=== PATIENT | female | born 1995 | race Caucasian/White ===

== ENCOUNTER 2023-07-23 06:04 | Inpatient (IN) | payer OTHER ==
[~2023-07-23] VITALS: Ht 175.3 cm; Wt 58.2 kg
[2023-07-23] MEDS ORDERED: DEXT30CA6 PO (06:41)
[2023-07-23] MEDS ORDERED: ESCI-8 PO (06:41)
[2023-07-23] MEDS ORDERED: AMPH15TA3 PO (06:41)
[2023-07-23] MEDS ORDERED: LEVO88TA7 PO (06:41)
[2023-07-23 07:00] LABS: BASOPHILS % (AUTO) 0.8 % (0.0-2.0); EOSINOPHILS % (AUTO) 3.7 % (1.0-6.0); HEMATOCRIT 34.7 % (36-46); LYMPHOCYTES # (AUTO) 1.7 K/uL (1.0-4.8); LYMPHOCYTES % (AUTO) 22.8 % (22.0-44.0); MEAN CORPUSCULAR HEMOGLOBIN 20.7 pg (26.0-34.0); MEAN CORPUSCULAR HGB CONC 31.8 G/dL (31.0-37.0); MEAN CORPUSCULAR VOLUME 65 fL (80-100); MONOCYTES # (AUTO) 0.7 K/uL (0.1-1.0); MONOCYTES % (AUTO) 8.9 % (2.0-9.0); NEUTROPHILS # (AUTO) 4.7 K/uL (1.8-7.7); NEUTROPHILS % (AUTO) 63.8 % (40.0-70.0); PLATELET COUNT (AUTO) 299 K/uL (150-450); RED BLOOD CELL COUNT(AUTO) 5.33 MIL/uL (4.00-5.20); RED CELL DISTRIBUTION WIDTH 15.7 % (11.5-14.5); WHITE BLOOD COUNT (AUTO) 7.4 K/uL (4.5-11.0)
[2023-07-23 07:09] LABS: ANION GAP 9 mmol/L (8-16); CARBON DIOXIDE 26 mmol/L (22-29); CHLORIDE 103 mmol/L (98-107); CREATININE 0.68 mg/dL (0.60-1.30); GLOMERULAR FILTR. RATE CALC > 60 mL/min (>60); GLUCOSE,RANDOM 96 mg/dL (70-110); POTASSIUM 4.2 mmol/L (3.5-5.1); SODIUM SERUM 138 mmol/L (136-145); UREA NITROGEN, BLOOD 13 mg/dL (7-18)
[2023-07-23 07:21] LABS: ALANINE AMINOTRANSFERASE 24 U/L (12-78); ALBUMIN 4.6 g/dL (3.4-5.0); ALKALINE PHOSPHATASE 81 U/L (46-116); ASPARTATE AMINOTRANSFERASE 17 U/L (15-37); BILIRUBIN,TOTAL 2.2 mg/dL (0.1-1.0); HCG,QUANTITATIVE < 1 mIU/mL (0-6)
[2023-07-23 07:29] LABS: ALCOHOL, BLOOD (SERUM) < 3 mg/dL (0-10)
[2023-07-23 08:12] LABS: RBC MORPHOLOGY COMMENT ABNORMAL RBC MORPH
[2023-07-23] MEDS: LORazepam 2 MG TABLET PO PRN (09:36)
[2023-07-23 09:50] LABS: PH,URINE DRUG SCREEN 6.5 (5.0-8.0)
[2023-07-23 09:57] LABS: ALCOHOL, URINE DRUG SCREEN NEGATIVE (NEGATIVE); AMPHET/METH SCREEN,URINE POSITIVE (NEGATIVE); BARBITURATE SCREEN, URINE NEGATIVE (NEGATIVE); BENZODIAZEPINES SCREEN,URINE NEGATIVE (NEGATIVE); CANNABINOID SCREEN,URINE POSITIVE (NEGATIVE); COCAINE SCREEN,URINE NEGATIVE (NEGATIVE); METHADONE SCREEN, URINE NEGATIVE (NEGATIVE); OPIATE SCREEN,URINE NEGATIVE (NEGATIVE); PHENCYCLIDINE SCREEN,URINE NEGATIVE (NEGATIVE)
[2023-07-23] MEDS: DiphenhydrAMINE HCL 25 MG CAPSULE PO ONE (10:30)
[2023-07-23 13:26] LABS: COVID AG,FIA SOURCE NASAL SWAB
[2023-07-23 13:44] LABS: SARS-COV2 (COVID) ANTIGEN,FIA Negative (Negative)
[2023-07-23 17:50] VITALS: BP 133/92; PULSE 89; RESP 18; TEMP 98; O2SAT 100
[2023-07-23] MEDS: HALOPERIDOL 5 MG TABLET PO PRN (21:18)
[2023-07-24 00:57] VITALS: BP 121/88; PULSE 85; RESP 18; TEMP 98
[2023-07-24] MEDS: ESCITALOPRAM OXALATE 10 MG TABLET PO SCH (09:47)
[2023-07-24 10:04] VITALS: BP 125/80; PULSE 80; RESP 17; TEMP 97.6; O2SAT 100
[2023-07-24] MEDS ORDERED: CloNIDine HCL 0.1 MG TABLET PO PRN (13:45)
[2023-07-24] MEDS ORDERED: LOPERAMIDE HCL 2 MG CAPSULE PO PRN (13:45)
[2023-07-24] MEDS ORDERED: ACETAMINOPHEN 325 MG TABLET PO PRN (13:45)
[2023-07-24] MEDS ORDERED: GuaiFENesin/D-METHORPHAN [SUGAR-FREE] 200-20MG/10 ML SYRUP UDCUP PO PRN (13:45)
[2023-07-24] MEDS ORDERED: ALBUTEROL SULFATE HFA 90 MCG/PUFF 8 GM INHALER IH PRN (13:45)
[2023-07-24] MEDS ORDERED: ONDANSETRON HCL 4 MG TABLET PO PRN (13:45)
[2023-07-24] MEDS ORDERED: PETROLATUM,WHITE 28 GM JELLY TP PRN (13:45)
[2023-07-24] MEDS ORDERED: MAG HYDROX/ALUMINUM HYD/SIMETH ES 30 ML SUSPENSION UDCUP PO PRN (13:45)
[2023-07-24] MEDS ORDERED: DOCUSATE SODIUM 100 MG CAPSULE PO PRN (13:45)
[2023-07-24] MEDS ORDERED: NICOTINE 14 MG/24 HOUR PATCH TD PRN (13:45)
[2023-07-24] MEDS ORDERED: MAGNESIUM HYDROXIDE SUSPENSION 30 ML UDCUP PO PRN (13:45)
[2023-07-24] MEDS: ZOLPIDEM TARTRATE 10 MG TABLET PO PRN (20:21)
[2023-07-24 23:22] VITALS: BP 124/80; PULSE 79; RESP 18; TEMP 97.7; O2SAT 100
[2023-07-25] MEDS ORDERED: LEVOTHYROXINE SODIUM 88 MCG TABLET PO SCH (06:30)
[2023-07-25] MEDS: LEVOTHYROXINE SODIUM 88 MCG TABLET PO SCH (08:41)
[2023-07-25 14:45] VITALS: BP 100/60; PULSE 61; RESP 13; TEMP 98.6; O2SAT 97
[2023-07-25 20:35] VITALS: BP 108/62; PULSE 70; RESP 17; TEMP 98; O2SAT 98
[2023-07-26 08:21] VITALS: BP 103/72; PULSE 79; RESP 16; TEMP 98; O2SAT 96
[2023-07-26 09:16] LABS: THYROID STIMULATING HORMONE 0.19 uIU/mL (0.36-3.74)
[2023-07-26 09:38] LABS: HEMOGLOBIN A1C 4.3 % (3.8-5.6)
[2023-07-26 22:40] VITALS: BP 110/60; PULSE 81; RESP 18; TEMP 97.7; O2SAT 98
[2023-07-27 08:36] VITALS: BP 103/66; PULSE 70; RESP 16; TEMP 97.9; O2SAT 98
[2023-07-27] MEDS ORDERED: ESCI-8 PO (10:53)
[2023-07-27] MEDS ORDERED: LEVO88TA7 PO (10:53)
== END 2023-07-27 11:45 | disposition left against medical advice (07) | DRG 885 ==
LOC: EMS 06:05 → B3A 14:14
PROVIDERS: ADMIT Psychiatry & Neurology Psychiatry; ATTEND Psychiatry & Neurology Psychiatry
PROC: GZHZZZZ Group Psychotherapy (ICD-10-PCS; principal; 2023-07-24)
PROC: GZ56ZZZ Individual Psychotherapy, Supportive (ICD-10-PCS; 2023-07-24)
DX: F33.2 Major depressive disorder, recurrent severe without psychotic features (principal); R45.851 Suicidal ideations; F12.10 Cannabis abuse, uncomplicated; E03.9 Hypothyroidism, unspecified; L40.9 Psoriasis, unspecified; Z20.822 Contact with and (suspected) exposure to COVID-19; Z53.29 Procedure and treatment not carried out because of patient's decision for other reasons; D64.9 Anemia, unspecified; Z79.899 Other long term (current) drug therapy; Z87.891 Personal history of nicotine dependence; Z88.6 Allergy status to analgesic agent; Z91.51 Personal history of suicidal behavior; Z88.8 Allergy status to other drugs, medicaments and biological substances
CPT/HCPCS: 80053; 80061; 80307; 83036; 84443; 84702; 85025; 99285; G0480